=== PATIENT | female | born 1990 | race African-American/Black ===

== ENCOUNTER 2022-03-05 16:44 | Emergency (ER) | payer BC ==
[2022-03-05 17:00] VITALS: BP 136/70; PULSE 55; RESP 16; TEMP 98.4; BMI 26.4
[2022-03-05] MEDS ORDERED: ACETAMINOPHEN 1000 MG/100 ML BAG IVPB ONE (17:08)
[2022-03-05] MEDS ORDERED: ACETAMINOPHEN INJECTION 100 ML IVPB ONE (17:59)
[2022-03-05 18:18] LABS: HEMATOCRIT 36.8 % (32.4-45.2); HEMOGLOBIN 12.7 G/dL (10.7-15.3); MCH 31.8 pg (25.7-33.7); MCHC 34.5 g/dl (32.0-36.0); MEAN CELL VOLUME 91.9 fl (80-96); MEAN PLT VOLUME 7.8 fl (7.5-11.1); PLATELET COUNT 275.2 10^3/uL (134-434); WHITE BLOOD COUNT 7.7 10^3/uL (4.0-10.8)
[2022-03-05 18:39] LABS: ALBUMIN 3.8 g/dl (3.4-5.0); BILIRUBIN,TOTAL 0.6 mg/dl (0.2-1); CALCIUM 8.7 mg/dl (8.5-10); CREATININE 0.6 mg/dl (0.55-1.3); TOT PROT 6.3 g/dl (6.4-8.2)
== END 2022-03-05 21:08 | disposition home or self-care (01) ==
LOC: FER 16:44
PROC: 3E0333Z Introduction of Anti-inflammatory into Peripheral Vein, Percutaneous Approach (ICD-10-PCS; principal; 2022-03-05)
DX: R10.31 Right lower quadrant pain (principal)
CPT/HCPCS: 36415; 76775-TC; 76830-TC; 80053; 81003; 84703; 85027; 87077; 87086; 99285-25

== ENCOUNTER 2023-01-31 10:45 | Emergency (ER) | payer BC ==
[2023-01-31 10:56] VITALS: BP 105/76; PULSE 73; RESP 18; TEMP 98.7; BMI 26.5
[2023-01-31] MEDS ORDERED: ACETAMINOPHEN 1000 MG/100 ML BAG IVPB ONE (11:23)
[2023-01-31] MEDS ORDERED: KETOROLAC TROMETHAMINE 30 MG/1 ML VIAL IVPUSH ONE (11:23)
[2023-01-31] MEDS ORDERED: SODIUM CHLORIDE 0.9% 1000 ML INFUS.BAG IV ONE (11:23)
[2023-01-31] MEDS ORDERED: KETOROLAC TROMETHAMINE 30 MG/1 ML VIAL ONE (11:36)
[2023-01-31] MEDS ORDERED: ACETAMINOPHEN INJECTION 100 ML IVPB ONE (11:36)
[2023-01-31 12:07] LABS: HEMOGLOBIN 14.1 G/dL (10.7-15.3); MCHC 33.6 g/dl (32.0-36.0); MEAN CELL VOLUME 92.4 fl (80-96); MEAN PLT VOLUME 8.2 fl (7.5-11.1); PLATELET COUNT 296.3 10^3/uL (134-434); RBC 4.55 10^6/uL (3.60-5.2); RDW 14.3 % (11.6-15.6); WHITE BLOOD COUNT 11.4 10^3/uL (4.0-10.8)
[2023-01-31 12:19] LABS: EPITHELIAL CELLS FEW /hpf
[2023-01-31 12:31] LABS: ALBUMIN 4.8 g/dl (3.4-5.0); BILIRUBIN,TOTAL 0.7 mg/dl (0.2-1); BLOOD UREA NITROGEN 10.1 mg/dl (7-18); CALCIUM 9.5 mg/dl (8.5-10.1); CREATININE 0.7 mg/dl (0.6-1.3); POTASSIUM 4.3 mmol/L (3.5-5.1); SGOT/AST 22.9 U/L (15-37); SGPT/ALT 28.5 U/L (7-52); TOT PROT 7.4 g/dl (6.4-8.2)
== END 2023-01-31 13:50 | disposition home or self-care (01) ==
LOC: FER 10:45
PROC: 3E033NZ Introduction of Analgesics, Hypnotics, Sedatives into Peripheral Vein, Percutaneous Approach (ICD-10-PCS; principal; 2023-01-31)
PROC: 3E0333Z Introduction of Anti-inflammatory into Peripheral Vein, Percutaneous Approach (ICD-10-PCS; 2023-01-31)
DX: R10.32 Left lower quadrant pain (principal); N28.81 Hypertrophy of kidney; N23 Unspecified renal colic
CPT/HCPCS: 36415; 74176-TC; 80053; 81003; 81015; 81025; 85027; 87086; 87186; 99284-25